=== PATIENT | male | born 1935 | race Caucasian/White ===

== ENCOUNTER 2017-12-02 11:24 | Emergency (ER) | payer MEDICARE ==
--- NOTE | 2017-12-02 11:47 | ED ---
Dizziness - HPI Summary HPI Summary: The pt is an 82 y/o male presenting to the [facility] c/o dizziness since 04:00 this morning.He was taken by EMS to [facility] where he was given Meclizine, Reglan, Zofran and Benadryl at OSH. A CT was also done at [facility]. He notes nausea, subjective fever and vomiting but denies CP, palpitations, blurred vision, neck pain, headaches and difficulties walking. He felt like he is going to have diarrhea. The pt denies a hx of trauma. This is alex Stephens documenting for attending Dr. Suresh MD. - History Of Current Complaint Stated Complaint: DIZZINESS Time Seen by Provider: 12/02/17 11:34 Hx Obtained From: Patient, EMS Onset/Duration: Still Present, Suddenly - 04:00 this morning Associated Signs And Symptoms: Positive: Negative - neck pain , REARDON, difficulty walking,, Nausea, Vomiting, Diarrhea - [place] like he was going to have diarrhea, Fever. Negative: Chest Pain, SOB, Palpitations, Visual Changes - Allergies/Home Medications Allergies/Adverse Reactions: Allergies Allergy/AdvReac Type Severity Reaction Status Date / Time carbamazepine Allergy Hives Verified 12/02/17 12:11 phenytoin Allergy Hives Verified 12/02/17 12:12 Home Medications: Home Medications Aspirin 81 mg CHEW TAB* [Aspirin Low Dose TAB*] 81 mg PO DAILY 12/02/17 [ History Confirmed 12/02/17] Atorvastatin* [Lipitor*] 10 mg PO DAILY 12/02/17 [History Confirmed 12/02/17] dilTIAZem HCl [Dilt-Xr] 120 mg PO DAILY 12/02/17 [History Confirmed 12/02/17] PMH/Surg Hx/FS Hx/Imm Hx Previously Healthy: No Endocrine/Hematology History: Denies: Hx Diabetes, Hx Systemic Lupus Erythematosus Cardiovascular History: Reports: Other Cardiovascular Problems/Disorders - TIA, CVA Denies: Hx Congestive Heart Failure, Hx Hypertension, Hx Pacemaker/ICD Respiratory History: Denies: Hx Asthma History: Denies: Hx Dialysis, Hx Renal Disease Musculoskeletal History: Denies: Hx Rheumatoid Arthritis Sensory History: Reports: Hx Cataracts Denies: Hx Hearing Aid Neurological History: Reports: Hx Seizures Psychiatric History: Denies: Hx Panic Disorder - Cancer History Cancer Type, 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 TUMOR since 1999 Hx Chemotherapy: No - Surgical History Surgery Procedure, Year, and Place: abd hernia repair Infectious Disease History: No Infectious Disease History: Denies: Traveled Outside the [place] in Last 30 Days - Family History Known Family History: Positive: Cardiac Disease, Other - Crohn's Disease, [place] - Social History Occupation: Retired Lives: With Family Review of Systems Positive: Fever - Subjective Negative: Blurred Vision ENT: Negative - Neck pain Negative: Palpitations, Chest Pain Positive: Vomiting, Diarrhea, Nausea Musculoskeletal: Negative - Difficulties walking All Other Systems Reviewed And Are Negative: Yes Physical Exam - Summary Physical Exam Summary: VITAL SIGNS: Reviewed. GENERAL: Patient is a well-developed and nourished male who is lying comfortable in the stretcher.Patient is not in any acute respiratory distress. HEAD AND FACE: No signs of trauma. No ecchymosis, hematomas or skull depressions. No sinus tenderness. EYES: PERRLA, EOMI x 2, No injected conjunctiva, no nystagmus. No photophobia. EARS: Hearing grossly intact. Ear canals and tympanic membranes are within normal limits. MOUTH: Oropharynx within normal limits. NECK: Supple, trachea is midline, no adenopathy, no JVD, no carotid bruit, no c- spine tenderness, neck with full ROM. No meningeal signs, no Kernig's or brudzinskis signs. CHEST: Symmetric, no tenderness at palpation LUNGS: Clear to auscultation bilaterally. No wheezing or crackles. CVS: Regular rate and rhythm, S1 and S2 present, no murmurs or gallops appreciated. ABDOMEN: Soft, non-tender. No signs of distention. No rebound no guarding, and no masses palpated. Bowel sounds are normal. EXTREMITIES: FROM in all major joints, no edema, no cyanosis or clubbing. NEURO: Alert and oriented x 3. No acute neurological deficits. Speech is normal and follows commands. SKIN: Dry and warm GCS: 15 Triage Information Reviewed: Yes Vital Signs On Initial Exam: Initial Vitals Temp Pulse Resp BP Pulse Ox 98.2 F 55 14 132/73 96 12/02/17 11:28 12/02/17 11:28 12/02/17 11:28 12/02/17 11:28 12/02/17 11:28 Vital Signs Reviewed: Yes Diagnostics - Vital Signs Vital Signs Temp Pulse Resp BP Pulse Ox 12/02/17 11:28 98.2 F 55 14 132/73 96 - Laboratory Lab Statement: Any lab studies that have been ordered have been reviewed, and results considered in the medical decision making process. National Institutes Of Health - NIH Scale Level of Consciousness: Alert/Keenly Responsive Ask Patient the Month and His/Her Age: Both Correct Ask Pt to Open/Close Eyes and Hydraulic Assembler/Release Non-Paretic Hand: Both Correctly Best Gaze (Only Horizontal Eye Movement): Normal Visual Field Testing: No Visual Loss Facial Paresis-Pt to Smile & Close Eyes or Grimace Symmetry: Normal/Symmetrical Motor Function - Right Arm: No Drift-Holds 10 Seconds Motor Function - Left Arm: No Drift-Holds 10 Seconds Motor Function - Right Leg: No Drift-Holds 10 Seconds Motor Function - Left Leg: No Drift-Holds 10 Seconds Limb Ataxia-Must be out of Proportion to Weakness Present: Absent Sensory (Use Pinprick to Test Arms/Legs/Trunk/Face): Normal Best Language (Describe Picture, Name Items): No Aphasia Dysarthria (Read Several Words): Normal Extinction and Inattention: No Abnormality Total Score: 0 Dizzy Course/Dx - Course Assessment/Plan: This patient is an 82-year-old male who presents to the emergency department via ambulance after he was transferred from [place] emergency department. This patient went into the [place] ED and he was accepted by Dr. Garvin from neurology. Apparently the patient has been working and had to move miscellaneous things into a truck yesterday. The weather was very warm and humid. Patient had not been drinking enough water and it seems that he became dehydrated. In the morning he developed nausea vomiting and dizziness and he went into the emergency department at [facility]. He had a head CT which it was read by radiology and also reviewed by Dr. Garvin and he thinks that he has a small mass but that it is chronic since 2012. He also had some posterior infarct seen in an MRI in 2013. After his assessment, physical exam and review of all the documentation from [place] he thinks that the patient had a TIA secondary to dehydration. Therefore, he decided to discharge the patient to follow with Dr. Reyna in the next 4 weeks. He discussed the findings and test results and plan with the patient and he agrees to be discharged home and follow with Dr. Reyna. The patient is hemodynamically stable alert and oriented 3. There was a question from family members that in route by EMS there were told that the pacemaker was not working well. However in the ER he has a heart rate at 55 bpm . I discussed the case with Dr. Ferreira and he recommends to call the pacemaker company to come and interrogate the pacemaker. I explained the patient the pluses and he declined the pacemaker interrogation. He will follow-up with his beam doffer. He will also return to the emergency department if the patient develops any other symptom. - Diagnoses Differential Diagnosis/HQI/PQRI: CVA, Dysrhythmia, Seizure, Transient Ischemic Attack, Vasovagal Reaction Provider Diagnoses: TIA (transient ischemic attack) - Provider Notifications Discussed Care Of Patient With: Prudence Garvin - Neurologist Time Discussed With Above Provider: 11:53 Instructed by Provider To: Other - 12:05: Dr. Hayes saw the patient in the ED. Discharge - Sign-Out/Discharge Documenting (check all that apply): Patient Departure - DC - Discharge Plan Condition: Stable Disposition: HOME Patient Education Materials: Transient Ischemic Attack (ED), Dehydration (ED) Referrals: Wes Pulido MD [Primary Care Provider] - 3 Days Additional Instructions: RETURN TO THE ED FOR ANY WORSENING OR NEW SYMPTOMS. - Billing Disposition and Condition Condition: STABLE Disposition: Home Consultation - Reason for Consultation Reason for Consultation: 14:05: Consult with Dr. Bry Ferreira MD. The beam doffer recommended calling the [employer] company to interrogate the pacemaker Attestation Statement Scribe Attestation: This is brittaniibnalini Stephens documenting for attending Dr. Suresh MD. User Type: Provider with Scribe Provider Attestation: The documentation recorded by the scribe accurately reflects the service I personally performed and the decisions made by me.
[2017-12-02 14:25] VITALS: BP 129/106
--- NOTE | 2017-12-02 21:11 | CONS ---
NEUROLOGY CONSULTATION NOTE: DATE OF CONSULT: 12/02/17 CONSULTING PHYSICIAN: Dr. Prince. REASON FOR CONSULT: Neurology was consulted for evaluation of transient vertigo. CHIEF COMPLAINT: "The vertigo has resolved and I want to go home now." HISTORY OF PRESENT ILLNESS: Mr. 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 The patient went to [place], but was transferred to [facility] for further evaluation. He stated that he got up at 4:30 a.m. and was soaked with sweat. He vomited several times. He was feeling extremely ill and was having dry heaves. A few minutes after that, the patient developed vertigo. The vertigo sensation was described as a spinning sensation around the room that lasted for 2 hours. The vertigo spontaneously resolved after the nausea and vomiting improved. The patient has baseline hearing loss. He denied any tinnitus. The patient had similar bout of vertigo in the past and he was reported to have symptomatic bradycardia and had a pacemaker placed 4 years ago. Since the pacemaker, the patient has not had any vertigo. The patient also stated that he was diagnosed with seizures in the past and was treated with seizure medication, but as soon as he had the pacemaker placed, his seizure-like activity resolved. The patient currently denied any vertigo, lightheadedness, speech disturbance, visual disturbance, or focal weakness/paresthesias. He has a mild 1/10 headache in the temporal region as if he was drinking last night and he is hung over. He denied any alcohol use. The patient did spend the day yesterday in the heat working on the old home that he purchased. He took a total of 8 loads to the dumpster. He did not hydrate himself adequately. The patient follows up with Dr. Casi Casey as an outpatient. He was last seen a few months ago and his appointments have been changed from every 6 months to every year now. Important to note that the patient has previous MRIs that I personally reviewed in 2012. He cannot have an MRI now due to the pacemaker according to the patient and family. The MRI at that time showed that he had a left ventricular mass that seemed to have not changed in size. He had a CT of the head done in [place] that I also personally reviewed with Dr. Prince. 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 The patient is aware of this mass and had neurosurgical evaluation at [facility] in the past. He is not interested in surgery. I don't see a significant change in size of the mass when compared to the brain MRI in 2013. PAST MEDICAL HISTORY: Hypertension, dyslipidemia, ischemic stroke, pacemaker placement. HOME MEDICATIONS: 1. Aspirin 81 mg p.o. daily. 2. Atorvastatin 10 mg p.o. daily. 3. Diltiazem 120 mg p.o. daily. 4. Clopidogrel which he takes Friday, Friday and . REVIEW OF SYSTEMS: A 14-point review of systems was obtained and otherwise negative except for what was mentioned in the HPI. PHYSICAL EXAM: Vitals: Temperature of 98.2, pulse 55, respiratory rate of 14, oxygen saturation of 96%, blood pressure of 132/73. General: Well-nourished, well- developed man, in no acute distress. Head: Normocephalic, atraumatic without any obvious abnormalities. Eyes: Conjunctivae/corneas are clear. Neck is supple and symmetrical with no carotid bruits. Lungs are clear to auscultation bilaterally with nonlabored breathing. Cardiovascular: Regular rate and rhythm with normal S1, S2. Radial pulses are palpable. Extremities: Normal range of motion with no cyanosis. No hammertoes or high arches. Skin: No skin lesions or laceration. Psych: Affect is broad and normal mood. Easy to establish rapport. Neurological Examination: Mental Status: Awake and alert, oriented to person, place, time, and general circumstances. He was unable to recall what he had for dinner last night, but speech and language including expression, naming, repetition, and comprehension were assessed and found to be normal. Cranial Nerves: Normal confrontation bilaterally. Pupils are mid range and reactive to light. Normal consensual response. Extraocular muscles are intact with no ptosis or asymmetric nystagmus. Sensation is intact on the forehead, cheeks, and jaw region bilaterally. There is no facial droop. There is facial symmetry while smiling and wrinkling of forehead. He is hard of hearing, but was able to hear our conversation without any difficulty. Tongue is symmetrical and midline with no atrophy or fasciculation. Motor: Right/left, no abnormal movements. No pronator drift. Tone is normal. Motor strength is 5/5 bilaterally. Reflexes: Right/left, brachioradialis 2/2, biceps 2/2, triceps 2/2, patella 1/1, ankle 0/ankle, plantar flexor/flexor. Sensation is intact to light touch throughout. Romberg sign negative. Coordination: Normal [id number] and rapid alternating movements bilaterally. Gait and Station: Wide based with no ataxia or swaying. The patient's NIH Stroke Scale is 0. DIAGNOSTIC STUDIES/LAB DATA: EKG reviewed from [facility] that showed sinus bradycardia with rate of 54. I reviewed the laboratory findings that were completed at [place] on 12/02/17 at 5:43 a.m. Sodium 145, chloride of 113, BUN of 26, glucose of 139, anion gap of 9, potassium of 3.3, carbon dioxide 23, calcium 8.5, lactic acid 1.8. Hemoglobin 15.2, WBC 5.2, platelets 187,000, hematocrit of 43.5. The patient received 2 L of IV fluid and since then the patient's symptoms have resolved. According to the ER staff, the patient was slightly dehydrated upon his examination prior to being transferred to [facility]. ASSESSMENT AND RECOMMENDATIONS: 1. Mr. Fuentes Hughes is an 82-year-old right-handed male with history of dyslipidemia, cerebellar strokes, intraventricular cyst, and history of symptomatic bradycardia relieved with a pacemaker, who was a transfer from [facility] due to new-onset vertigo, nausea and vomiting this morning. The patient was working outside yesterday for a few hours, working on an old home that he had purchased. The patient did endorse reduced oral intake especially water. On examination today, the patient has no focal neurological deficit and he was able to ambulate without any assistance. The patient is eager to go home and declined further workup unless it is necessary and/or it cannot be done as outpatient. Overall, I do suspect the patient may have had an episode of peripheral vertigo that resolved with IV hydration. He may have been dehydrated from the work he put it the previous day. Other differential diagnosis include recrudescence of previous neurological symptoms due to dehydration. We cannot entirely exclude a new cerebellar stroke, although last time he had the cerebellar strokes, he had other neurological findings such as hemiparesis, hemiparesthesia , and ataxia. NIH Stroke Scale is 0; therefore, he is not a candidate for any intervention either with IV tPA or endovascular thrombectomy. I recommend the patient to take aspirin and Plavix on a daily basis, thus increasing the Plavix to daily instead of 3 times a week. If he has recurrence of his symptoms, I urged him to immediately call 911 to come back to the hospital and at that time CTA can be performed. However, currently, the patient looks very well and is asymptomatic to have further evaluation in the hospital, thus I agree with his urgency to go home. I do recommend the patient to increase his oral hydration. He should not be working outside in the heat the next few days. In regards to the finding of the ventricular mass on the CT done in [place] today, the patient denied any new symptoms of any new focal neurological deficits or new headaches. Therefore, I do not think this mass is symptomatic and when I reviewed the MRI from 2012, I was able to compare and see that there has not been any significant difference in the lesion. 2. Dyslipidemia. Continue taking atorvastatin 10 mg nightly. 3. Remote cerebellar stroke - asymptomatic. Continue dual antiplatelet therapy. I recommend sooner followup with Dr. Casey within the next 3-4 weeks. The patient will schedule an appointment. TIME SPENT: I spent a total of 75 minutes and greater than 50% of that was spent directly reviewing the medical chart, obtaining history, examining the patient, education and counseling, discussing the treatment plan and prognosis with Dr. Prince as well as the family at bedside. The family agreed to take the patient home as they are comfortable that he seems to be back to his normal self. [id number]/[facility] #: [id number] NENA
== END 2017-12-02 14:28 | disposition home or self-care (01) ==
LOC: ED 11:24
DX: G45.9 Transient cerebral ischemic attack, unspecified (principal); Z95.0 Presence of cardiac pacemaker; Z88.8 Allergy status to other drugs, medicaments and biological substances; Z86.73 Personal history of transient ischemic attack (TIA), and cerebral infarction without residual deficits
CPT/HCPCS: 99282